=== PATIENT | female | born 1945 | race African-American/Black ===

== ENCOUNTER 2019-05-20 17:32 | Emergency (ER) | payer MEDICARE, BC ==
[~2019-05-20] VITALS: Ht 142.2 cm; Wt 54.4 kg
--- NOTE | 2019-05-20 17:57 | NUR ---
YENY SAWYER AT BEDSIDE FOR MSE.
[2019-05-20] MEDS ORDERED: IV NORMAL SALINE 1000 ML BAG IV ONE (18:15)
[2019-05-20] MEDS ORDERED: LIDOCAINE VISCUS 2% 15 ML UDC MM ONE (18:15)
[2019-05-20] MEDS ORDERED: MAG HYDROX/AL HYDROX/SIMETH 30 ML LIQUID UDC PO ONE (18:15)
[2019-05-20] MEDS ORDERED: LIDOCAINE VISCUS 2% 15 ML UDC ONE (18:18)
[2019-05-20] MEDS ORDERED: MAG HYDROX/AL HYDROX/SIMETH 30 ML LIQUID UDC ONE (18:18)
--- NOTE | 2019-05-20 19:05 | NUR ---
SHIFT REPORT GIVEN TO MAXINE MATA. PT RESTING IN BED COMFORTABLY W/ FAMILY AT BEDSIDE.
--- NOTE | 2019-05-20 19:06 | NUR ---
Patient discharged to home in stable conditon. Written and verbal after care instructions given. Patient verbalizes understanding of instructions. ALL BELONGINGS W/ PT. PT SELF-AMBULATED W/O DIFFICULTY. 20G IV ACCESS IN LFA REMOVED PRIOR TO D/C - INNER CANNULA INTACT.
[2019-05-20 19:08] VITALS: BP 119/56
== END 2019-05-20 19:06 | disposition home or self-care (01) ==
LOC: ER 17:33
DX: R55 Syncope and collapse (principal); E86.0 Dehydration; R00.0 Tachycardia, unspecified; C34.90 Malignant neoplasm of unspecified part of unspecified bronchus or lung; F32.9 Major depressive disorder, single episode, unspecified; Z88.0 Allergy status to penicillin
CPT/HCPCS: A4663; J7030